=== PATIENT | female | born 1980 | race African-American/Black ===

== ENCOUNTER 2016-11-22 19:04 | Emergency (ER) | payer BC ==
--- NOTE | 2016-11-22 19:22 | ER Document Report ---
ED Medical Screen (RME) - General Chief Complaint: Flu Symptoms Stated Complaint: CHEST PAIN Notes: Flulike symptoms for approximately 20 hours TRAVEL OUTSIDE OF THE [place] IN LAST 30 DAYS: No - Related Data Allergies/Adverse Reactions: No Known Allergies Allergy (Unverified 02/22/16 15:15) Past Medical History - Immunizations Hx Diphtheria, Pertussis, Tetanus Vaccination: Yes
[2016-11-22] MEDS ORDERED: HYDROCODONE/ACETAMINOPHEN 5-325 MG TABLET PO ONE (20:44)
[2016-11-22] MEDS ORDERED: HYDROCODONE/ACETAMINOPHEN 5-325 MG 6 TAB/DSPK PO PRN (20:44)
--- NOTE | 2016-11-22 20:47 | ER Document Report ---
ED Flu Like - General Chief Complaint: Flu Symptoms Stated Complaint: CHEST PAIN Time seen by provider: 20:44 Mode of Arrival: Ambulatory Information source: Patient TRAVEL OUTSIDE OF THE [place] IN LAST 30 DAYS: No - HPI Patient complains to provider of: headache, body aches, flulike symptoms Onset: This morning Timing/Duration: Constant, Persistent Quality of pain: Achy Severity: Moderate Pain Level: 3 Associated symptoms: Body/muscle aches, Chest pain, Chills, Headache Similar symptoms previously: No Recently seen / treated by doctor: No Notes: Patient is a 36-year-old female with no history of medical illness who presents to the emergency room for complaints of flulike symptoms with body aches, headache, chest pain, she denies any fever, does report chills, no sore throat, no ear pain, no vomiting or diarrhea, she denies any specific sick contacts, however 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, she has not taken any medication for her symptoms since they started this morning - Related Data Allergies/Adverse Reactions: No Known Allergies Allergy (Unverified 02/22/16 15:15) Past Medical History - General Information source: Patient - Social History Smoking Status: Unknown if Ever Smoked Frequency of alcohol use: None Drug Abuse: None Family History: Hypertension Patient has suicidal ideation: No Patient has homicidal ideation: No Renal/ Medical History: Denies: Hx Peritoneal Dialysis - Immunizations Hx Diphtheria, Pertussis, Tetanus Vaccination: Yes Review of Systems - Review of Systems Constitutional: Chills EENT: Nose congestion Cardiovascular: No symptoms reported Respiratory: No symptoms reported Gastrointestinal: No symptoms reported Genitourinary: No symptoms reported Female Genitourinary: No symptoms reported Musculoskeletal: See HPI Skin: No symptoms reported Hematologic/Lymphatic: No symptoms reported Neurological/Psychological: Headaches Physical Exam - Vital signs Vitals: Temp Pulse BP Pulse Ox 98.8 F 90 153/90 H 99 11/22/16 19:22 11/22/16 19:22 11/22/16 19:22 11/22/16 19:22 Interpretation: Normal - General General appearance: Appears well, Alert - HEENT Head: Normocephalic, Atraumatic Eyes: Normal Pupils: PERRL - Respiratory Respiratory status: No respiratory distress Chest status: Nontender Breath sounds: Normal Chest palpation: Normal - Cardiovascular Rhythm: Regular Heart sounds: Normal auscultation Murmur: No - Abdominal Inspection: Normal Distension: No distension Bowel sounds: Normal Tenderness: Nontender Organomegaly: No organomegaly - Back Back: Normal, Nontender - Extremities General upper extremity: Normal inspection, Nontender, Normal color, Normal ROM , Normal temperature General lower extremity: Normal inspection, Nontender, Normal color, Normal ROM , Normal temperature, Normal weight bearing. No: Christina's sign - Neurological Neuro grossly intact: Yes Cognition: Normal Orientation: AAOx4 John Paul Coma Scale Eye Opening: Spontaneous Tiro Coma Scale Verbal: Oriented Tiro Coma Scale Motor: Obeys Commands Tiro Coma Scale Total: 15 Speech: Normal Motor strength normal: LUE, RUE, LLE, RLE Sensory: Normal - Psychological Associated symptoms: Normal affect, Normal mood - Skin Skin Temperature: Warm Skin Moisture: Dry Skin Color: Normal Course - Re-evaluation Re-evalutation: 11/22/16 20:45 Patient with signs and symptoms of viral illness, normal EKG findings and negative rapid flu test, she was advised toward supportive care including rest, fluids, Tylenol or Motrin as needed for fever or pain, we discussed the possibility of starting Tamiflu, however patient declined at the present time, patient will be given instructions for follow-up and advised to return if symptoms worsen, patient acknowledges understanding and agreement with this plan - Vital Signs Vital signs: Temp Pulse Resp BP Pulse Ox 98.8 F 90 153/90 H 99 11/22/16 19:22 11/22/16 19:22 11/22/16 19:22 11/22/16 19:22 - EKG Interpretation by Me EKG shows normal: Sinus rhythm Rate: Normal Rhythm: NSR Discharge - Discharge Clinical Impression: Viral infection Condition: Stable Disposition: HOME, SELF-CARE Instructions: Viral Syndrome ([facility]), Oral Narcotic Medication ([facility]) Additional Instructions: Follow up with your primary care provider in one to 2 days. Return to the emergency room immediately if symptoms worsen or any additional concerns. Drink plenty fluids and get plenty or rest. Tylenol or Motrin as needed for pain or fever. Prescriptions: Tramadol HCl/Acetaminophen [Ultracet 37.5 mg/325 mg Tablet] 1 each PO Q6 #20 tablet Forms: Return to Work
[2016-11-22 21:16] VITALS: BP 153/95
--- NOTE | 2016-11-23 08:21 | EKG REPORT ---
SEVERITY:- NORMAL ECG - SINUS RHYTHM : Confirmed by: Tiago Vila MD 23-Nov-2016 08:20:33
== END 2016-11-22 20:59 | disposition home or self-care (01) ==
LOC: ER 19:04
DX: R51 Headache (principal); B34.9 Viral infection, unspecified; M79.1 Myalgia; R68.83 Chills (without fever)
CPT/HCPCS: 87804; 93005; 93010; 99283

== ENCOUNTER 2017-04-08 12:40 | Emergency (ER) | payer OTHER, BC ==
[2017-04-08 12:58] VITALS: BP 164/101
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
== END 2017-04-08 13:54 | disposition home or self-care (01) ==
LOC: ER 12:40
DX: T22.411A Corrosion of unspecified degree of right forearm, initial encounter (principal); T22.412A Corrosion of unspecified degree of left forearm, initial encounter; Y93.G1 Activity, food preparation and clean up; Y92.129 Unspecified place in nursing home as the place of occurrence of the external cause; Y99.0 Civilian activity done for income or pay
CPT/HCPCS: 99283

== ENCOUNTER 2018-05-14 09:10 | Emergency (ER) | payer BC, OTHER ==
[2018-05-14 09:18] VITALS: BP 145/91
[2018-05-14] MEDS ORDERED: KETOROLAC TROMETHAMINE INJ/PF 30 MG/1 ML SDV IV ONE (10:33)
[2018-05-14] MEDS ORDERED: METHOCARBAMOL 500 MG TABLET PO ONE (10:34)
--- NOTE | 2018-05-14 10:35 | ER Document Report ---
ED Medical Screen (RME) - General Chief Complaint: Headache >24 hrs old Stated Complaint: HEADACHE Time Seen by Provider: 05/14/18 10:33 Notes: 38-year-old female who presents with 4 days of right upper neck pain with radiation to her anterior head causing a headache. Seen in urgent care yesterday and given a shot of steroids and pain medicine. Woke up with recurrence of the pain and headache. PE: Tenderness over right upper paracervical muscles. 5/5 strength in all 4 extremities. Sensation intact. I have greeted and performed a rapid initial assessment of this patient. A comprehensive ED assessment and evaluation of the patient, analysis of test results and completion of the medical decision making process will be conducted by additional ED providers. TRAVEL OUTSIDE OF THE [place] IN LAST 30 DAYS: No - Related Data Allergies/Adverse Reactions: No Known Allergies Allergy (Verified 05/14/18 09:11) Past Medical History - Past Medical History Cardiac Medical History: Reports: Hx Hypertension Renal/ Medical History: Denies: Hx Peritoneal Dialysis - Immunizations Hx Diphtheria, Pertussis, Tetanus Vaccination: Yes Physical Exam - Vital signs Vitals: Temp Pulse Resp BP Pulse Ox 97.9 F 83 18 145/91 H 100 05/14/18 09:17 05/14/18 09:17 05/14/18 09:17 05/14/18 09:17 05/14/18 09:17 Course - Vital Signs Vital signs: Temp Pulse Resp BP Pulse Ox 97.9 F 83 18 145/91 H 100 05/14/18 09:17 05/14/18 09:17 05/14/18 09:17 05/14/18 09:17 05/14/18 09:17
--- NOTE | 2018-05-14 10:41 | ER Document Report ---
ED General - General Chief Complaint: Headache >24 hrs old Stated Complaint: HEADACHE Time Seen by Provider: 05/14/18 10:33 Mode of Arrival: Ambulatory Information source: Patient TRAVEL OUTSIDE OF THE [place] IN LAST 30 DAYS: No - HPI Notes: 38-year-old female with a past medical history of headaches was a right upper neck pain which is causing her headache for the last 4 days. Patient was seen in urgent care yesterday and given a shot of steroid and antiemetic. States her pain is 6 out of 10, throbbing sharp and shooting. denies . Has not tried anything [id number] besides ibuprofen. Has not tried any hot or cold compresses. Denies fevers, chills, chest pain,palpitations, shortness of breath, dyspnea, nausea, vomiting, diarrhea, abdominal pain, hematuria,blurred vision, double vision, loss of vision, speech changes, LH, dizziness, syncope, wheezing, ST, URI, weakness, bowel or bladder dysfunction, saddle anesthesia, numbness or tingling in bilateral upper or lower extremities equally, muscle paralysis, weakness in bilateral upper or lower extremities equally or rash. Denies IV drug use. - Related Data Allergies/Adverse Reactions: No Known Allergies Allergy (Verified 05/14/18 09:11) Past Medical History - General Information source: Patient - Social History Smoking Status: Current Every Day Smoker Chew tobacco use (# tins/day): No Frequency of alcohol use: None Drug Abuse: None Family History: Hypertension Patient has suicidal ideation: No Patient has homicidal ideation: No - Past Medical History Cardiac Medical History: Reports: Hx Hypertension Renal/ Medical History: Denies: Hx Peritoneal Dialysis - Immunizations Hx Diphtheria, Pertussis, Tetanus Vaccination: Yes Review of Systems - Review of Systems Constitutional: No symptoms reported EENT: No symptoms reported Cardiovascular: No symptoms reported Respiratory: No symptoms reported Gastrointestinal: No symptoms reported Genitourinary: No symptoms reported Female Genitourinary: No symptoms reported Musculoskeletal: Neck pain Skin: No symptoms reported Hematologic/Lymphatic: No symptoms reported Neurological/Psychological: Headaches Physical Exam - Vital signs Vitals: Temp Pulse Resp BP Pulse Ox 97.9 F 83 18 145/91 H 100 05/14/18 09:17 05/14/18 09:17 05/14/18 09:17 05/14/18 09:17 05/14/18 09:17 - Notes Notes: PHYSICAL EXAMINATION: GENERAL: Well-appearing, well-nourished and in no acute distress. HEAD: Atraumatic, normocephalic. EYES: Pupils equal round and reactive to light, extraocular movements intact, conjunctiva are normal. ENT: Nares patent, oropharynx clear without exudates. Moist mucous membranes. NECK: Normal range of motion, supple without lymphadenopathy LUNGS: Breath sounds clear to auscultation bilaterally and equal. No wheezes rales or rhonchi. HEART: Regular rate and rhythm without murmurs ABDOMEN: Soft, nontender, nondistended abdomen. No guarding, no rebound. No masses appreciated. Female : deferred Musculoskeletal: Normal range of motion, no pitting or edema. No cyanosis. full APROM of cervical spine, no noted cervical spinal tenderness on palpation. negative spurlings test. 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 Dtr +2 bilaterally and equally in BUE. Perrla, full eomi. Face symmetrical. No rashes observed. Point tenderness to right paraspinal muscles near C6. No lymphadenopathy. Full APROM with shoulders. TM intact bilaterally. No meningismus. No noted lymphadenopathy. NEUROLOGICAL: Cranial nerves grossly intact. Normal speech, normal gait. Normal sensory, motor exams PSYCH: Normal mood, normal affect. SKIN: Warm, Dry, normal turgor, no rashes or lesions noted. Course - Re-evaluation Re-evalutation: 05/14/18 15:56 8-year-old female is afebrile, vitals stable and in no distress presents for evaluation of headache that she has had for the last 4 days. Patient has right- sided cervical paraspinal tenderness which is been causing her headache. Patient given Robaxin, Toradol while in triage, this provider also gave patient IV fluids, Benadryl and Compazine. On reevaluation, patient states her headache reduced to 2 out of 10, only a slight throb. Is afebrile, vitals stable and in no distress. States that she feels comfortable going home and will follow up with her doctor. After performing a Medical Screening Examination , I estimate there is LOW risk for ACUTE GLAUCOMA, TEMPORAL ARTERITIS, MENINGITIS, INCRANIAL HEMORRHAGE, or ISCHEMIC STROKE thus I consider the discharge disposition reasonable. I have reevaluated this patient multiple times and no significant life threatening changes are noted. The patient and I have discussed the diagnosis and risks, and we agree with discharging home with close follow-up with the understanding that symptoms and presentations can change. We also discussed returning to the Emergency Department immediately if new or worsening symptoms occur. We have discussed the symptoms which are most concerning (e.g., changing or worsening symptoms, new numbness or weakness, vomiting, fever) that necessitate immediate return. - Vital Signs Vital signs: Temp Pulse Resp BP Pulse Ox 97.9 F 83 18 145/91 H 100 05/14/18 09:17 05/14/18 09:17 05/14/18 09:17 05/14/18 09:17 05/14/18 09:17 Discharge - Discharge Clinical Impression: Headache, Muscle spasm Condition: Stable Disposition: HOME, SELF-CARE Instructions: Intravenous Compazine for Headaches ([facility]), Headache ([facility]), Muscle Relaxers ([facility]), Muscle Strain ([facility]), Tension Headache ([facility]) Additional Instructions: Neck Injury (Cervical Strain) You have a neck strain. This is an injury to the muscles and ligaments in the neck. There is no evidence of a fracture of the neck bones. Also, no injury to the spinal cord or nerve roots was detected. Usually, stiffness and pain INCREASE for the first 24-48 hours after the injury. The pain will gradually resolve and the neck will become more mobile. Most patients are back at work or school within a few days. Typically, complete healing takes about two or three weeks. The usual initial treatment is rest and cold packs. A neck collar may be placed to keep the muscles of the neck at rest. Antiinflammatory and muscle relaxing medication are often used to reduce the spasm and irritation. You should call the doctor, or go to the hospital, if you develop numbness or weakness in any extremity, problems with your bladder or bowel, or pain radiating down the arms. Prescriptions: Cyclobenzaprine HCl [Flexeril 10 mg Tablet] 10 mg PO TIDP PRN #9 tab PRN Reason: Forms: Return to Work Referrals: MIR ANGUIANO MD [ACTIVE STAFF] - Follow up in 3-5 days ANNETTE GORDON MD [EMERITUS] - Follow up in 3-5 days RICARDO SIMS MD [ACTIVE STAFF] - Follow up in 3-5 days
[2018-05-14] MEDS ORDERED: NORMAL SALINE 1000 ML 1,000 ML IV ONE (10:54)
[2018-05-14] MEDS ORDERED: DIPHENHYDRAMINE HCL 50 MG/ML VIAL IV ONE (10:54)
[2018-05-14] MEDS ORDERED: PROCHLORPERAZINE EDISYLATE INJ 10 MG/2 ML VIAL IV ONE (10:55)
== END 2018-05-14 12:32 | disposition home or self-care (01) ==
LOC: ER 09:10
DX: R51 Headache (principal); M62.838 Other muscle spasm; M54.2 Cervicalgia; F17.200 Nicotine dependence, unspecified, uncomplicated
CPT/HCPCS: 99284; 96361; 96374; 96375; J1200; J1885; J0780; J7030

== ENCOUNTER → 2020-05-03 | Outpatient (CLI) | payer BC | LOC: RDC 16:16 | PROVIDERS: ATTEND Nurse Practitioner Family | DX: Z03.818 Encounter for observation for suspected exposure to other biological agents ruled out (principal) | CPT/HCPCS: 87635; C9803 ==

== ENCOUNTER 2020-07-29 14:32 | Emergency (ER) | payer BC ==
[2020-07-29 14:37] VITALS: BP 112/69
--- NOTE | 2020-07-29 14:45 | ER Document Report ---
ED Medical Screen (RME) - General Chief Complaint: Dizziness Stated Complaint: BLOOD PRESSURE ISSUES Time Seen by Provider: 07/29/20 14:38 Mode of Arrival: Ambulatory Information source: Patient Notes: 40-year-old female presented to ED for complaint of dizziness. She thought it was her blood pressure but the blood pressure is good. We will get blood and urine and have her evaluated. Patient is alert oriented respirations regular nonlabored speaking in full sentences. Patient states she is perimenopausal so she did not think she could be I explained to her that it is very po ssible. I have greeted and performed a rapid initial assessment of this patient. A comprehensive ED assessment and evaluation of the patient, analysis of test results and completion of medical decision making process will be conducted by an additional ED providers. TRAVEL OUTSIDE OF THE [place] IN LAST 30 DAYS: No - Related Data Allergies/Adverse Reactions: No Known Allergies Allergy (Verified 07/29/20 14:38) Past Medical History - Past Medical History Cardiac Medical History: Reports: Hx Hypertension Renal/ Medical History: Denies: Hx Peritoneal Dialysis - Immunizations Hx Diphtheria, Pertussis, Tetanus Vaccination: Yes Physical Exam - Vital signs Vitals: Temp Pulse Resp BP Pulse Ox 97.9 F 103 H 18 112/69 99 07/29/20 14:36 07/29/20 14:36 07/29/20 14:36 07/29/20 14:36 07/29/20 14:36 Course - Vital Signs Vital signs: Temp Pulse Resp BP Pulse Ox 97.9 F 103 H 18 112/69 99 07/29/20 14:36 07/29/20 14:36 07/29/20 14:36 07/29/20 14:36 07/29/20 14:36
[2020-07-29 15:16] LABS: ABSOLUTE LYMPHOCYTES (AUTO) 1.3 10^3/uL (0.5-4.7); ABSOLUTE MONOCYTES (AUTO) 0.6 10^3/uL (0.1-1.4); ABSOLUTE NEUT (AUTO) 2.5 10^3/uL (1.7-8.2); BASOPHILS % (AUTO) 0.2 % (0-2); EOSINOPHILS % (AUTO) 0.8 % (0-6); HEMATOCRIT 38.7 % (36.0-47.0); HEMOGLOBIN 13.6 g/dL (12.0-15.5); LYMPHOCYTES % (AUTO) 28.7 % (13-45); MEAN CORPUSCULAR HEMOGLOBIN 35.9 pg (27.0-33.4); MEAN CORPUSCULAR HGB CONC 35.2 g/dL (32.0-36.0); MEAN CORPUSCULAR VOLUME 102 fl (80-97); MONOCYTES % (AUTO) 14.5 % (3-13); PLATELET COUNT 136 10^3/uL (150-450); RED CELL DISTRIBUTION WIDTH 14.3 % (11.5-14.0); SEGMENTED NEUTROPHILS % (AUTO) 55.8 % (42-78); TOTAL CELLS COUNTED % (AUTO) 100 %; WHITE BLOOD COUNT 4.4 10^3/uL (4.0-10.5)
[2020-07-29 15:36] LABS: ALBUMIN 4.3 g/dL (3.5-5.0); ALKALINE PHOSPHATASE 133 U/L (38-126); ANION GAP 7 (5-19); ASPARTATE AMINO TRANSFERASE 33 U/L (14-36); BILIRUBIN,DIRECT 0.3 mg/dL (0.0-0.4); BILIRUBIN,TOTAL 0.8 mg/dL (0.2-1.3); BLOOD UREA NITROGEN 28 mg/dL (7-20); CARBON DIOXIDE 28 mmol/L (22-30); CHLORIDE 100 mmol/L (98-107); GLUCOSE 107 mg/dL (75-110); POTASSIUM 4.2 mmol/L (3.6-5.0); TOTAL PROTEIN 7.9 g/dL (6.3-8.2)
[2020-07-29 17:04] LABS: APPEARANCE,URINE CLOUDY; BILIRUBIN,URINE SMALL (NEGATIVE); COLOR,URINE AMBER; GLUCOSE, URINE NEGATIVE (NEGATIVE); KETONES,URINE TRACE mg/dL (NEGATIVE); LEUKOCYTE ESTERASE,URINE MODERATE (NEGATIVE); NITRITE,URINE NEGATIVE (NEGATIVE); PROTEIN,URINE 100 mg/dL (NEGATIVE); URINE SPECIFIC GRAVITY 1.024
--- NOTE | 2020-07-29 18:02 | ER Document Report ---
Doctor's Note Notes: 07/29/20 18:00 Patient decided to leave AMA. I did give her instructions concerning risks of leaving AMA. She does have renal insufficiency, elevated alkaline phosphatase, cloudy urine with possible UTI but no definite. She states she knows she supposed to get a renal biopsy but has not done it yet. She was supposed to follow-up with Dr. Augustin and has not done it yet. She has been given instructions the risk to include if she does not get her treatments done as prescribed. Patient decided to leave and did sign AMA papers.
== END 2020-07-29 20:00 | disposition left against medical advice (07) ==
LOC: ER 14:32
DX: R42 Dizziness and giddiness (principal); N28.9 Disorder of kidney and ureter, unspecified; I10 Essential (primary) hypertension; Z53.20 Procedure and treatment not carried out because of patient's decision for unspecified reasons
CPT/HCPCS: 36415; 80053; 81001; 84702; 85025; 87086; 99283

== ENCOUNTER 2020-11-13 08:40 | Emergency (ER) | payer BC ==
--- NOTE | 2020-11-13 11:42 | RADIOLOGY REPORT (SQ) ---
EXAM DESCRIPTION: CHEST SINGLE VIEW IMAGES COMPLETED DATE/TIME: 11/13/2020 10:18 am REASON FOR STUDY: chest pain; SOB COMPARISON: 02/22/2016 EXAM PARAMETERS: NUMBER OF VIEWS: One view. TECHNIQUE: Single frontal radiographic view of the chest acquired. RADIATION DOSE: NA LIMITATIONS: None. FINDINGS: LUNGS AND PLEURA: No opacities, masses or pneumothorax. No pleural effusion. MEDIASTINUM AND HILAR STRUCTURES: No masses. Contour normal. HEART AND VASCULAR STRUCTURES: Heart normal in size. Normal vasculature. BONES: No acute findings. HARDWARE: None in the chest. OTHER: No other significant finding. IMPRESSION: NO ACUTE RADIOGRAPHIC FINDING IN THE CHEST. TECHNICAL DOCUMENTATION: JOB ID: [id number] 2010 [employer]- All Rights Reserved Reading location - IP/workstation name: [email or web address]
[2020-11-13 12:21] LABS: ABSOLUTE LYMPHOCYTES (AUTO) 0.7 10^3/uL (0.5-4.7); ABSOLUTE MONOCYTES (AUTO) 0.4 10^3/uL (0.1-1.4); ABSOLUTE NEUT (AUTO) 2.5 10^3/uL (1.7-8.2); BASOPHILS % (AUTO) 0.2 % (0-2); EOSINOPHILS % (AUTO) 0.6 % (0-6); HEMATOCRIT 33.9 % (36.0-47.0); HEMOGLOBIN 11.9 g/dL (12.0-15.5); LYMPHOCYTES % (AUTO) 19.1 % (13-45); MEAN CORPUSCULAR HEMOGLOBIN 35.9 pg (27.0-33.4); MEAN CORPUSCULAR HGB CONC 35.1 g/dL (32.0-36.0); MEAN CORPUSCULAR VOLUME 102 fl (80-97); MONOCYTES % (AUTO) 12.1 % (3-13); RED BLOOD COUNT 3.31 10^6/uL (3.72-5.28); RED CELL DISTRIBUTION WIDTH 15.6 % (11.5-14.0); TOTAL CELLS COUNTED % (AUTO) 100 %; WHITE BLOOD COUNT 3.6 10^3/uL (4.0-10.5)
[2020-11-13 12:30] LABS: ALBUMIN 3.5 g/dL (3.5-5.0); ALKALINE PHOSPHATASE 128 U/L (38-126); ANION GAP 6 (5-19); ASPARTATE AMINO TRANSFERASE 26 U/L (14-36); BILIRUBIN,DIRECT 0.1 mg/dL (0.0-0.4); BILIRUBIN,TOTAL 0.6 mg/dL (0.2-1.3); BLOOD UREA NITROGEN 10 mg/dL (7-20); CALCIUM 8.6 mg/dL (8.4-10.2); CARBON DIOXIDE 26 mmol/L (22-30); CHLORIDE 103 mmol/L (98-107); GLUCOSE 84 mg/dL (75-110); POTASSIUM 3.5 mmol/L (3.6-5.0); TOTAL PROTEIN 6.9 g/dL (6.3-8.2)
--- NOTE | 2020-11-13 12:39 | ER Document Report ---
ED General - General Chief Complaint: Shortness Of Breath Stated Complaint: CHEST TIGHTNESS, DIFFICULTY BREATHING Time Seen by Provider: 11/13/20 12:16 Primary Care Provider: NEFTALI DAVILA MD [Primary Care Provider] - Follow up as needed TRAVEL OUTSIDE OF THE [place] IN LAST 30 DAYS: No - HPI Notes: Patient is a 40-year-old female with a history of lupus who presents with chest pain and shortness of breath that began last night. Patient describes her chest pain as substernal and sharp which has remained constant. She also reports left knee swelling but denies any calf pain or swelling. Patient states she had diarrhea the last 2 days after eating crab legs which is now resolved. Patient states she has a known shellfish allergy and typically gets abdominal pain and diarrhea. She denies abdominal pain, nausea, vomiting, fever, and hemoptysis. 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 She denies hormone use. She is a current everyday smoker and smokes 3-4 "blacks" per day. She states she drinks a couple glasses of wine every night. She denies any recreational drug use. She denies any family cardiac hx. - Related Data Allergies/Adverse Reactions: No Known Allergies Allergy (Verified 07/29/20 14:38) Home Medications: Lisinopril, HCTZ, Hydrochloroqine Past Medical History - General Information source: Patient - Social History Smoking Status: Current Every Day Smoker Cigarette use (# per day): Yes - 4 Frequency of alcohol use: Heavy Drug Abuse: None Family History: Hypertension - Past Medical History Cardiac Medical History: Reports: Hx Hypertension Pulmonary Medical History: Reports: Hx Asthma Renal/ Medical History: Denies: Hx Peritoneal Dialysis - Immunizations Hx Diphtheria, Pertussis, Tetanus Vaccination: Yes Review of Systems - Review of Systems Constitutional: No symptoms reported EENT: No symptoms reported Cardiovascular: See HPI Respiratory: See HPI Gastrointestinal: No symptoms reported Genitourinary: No symptoms reported Female Genitourinary: No symptoms reported Musculoskeletal: See HPI Skin: No symptoms reported Hematologic/Lymphatic: No symptoms reported Neurological/Psychological: No symptoms reported Physical Exam - Vital signs Vitals: Pulse Resp BP Pulse Ox 93 16 141/90 H 100 11/13/20 08:43 11/13/20 08:43 11/13/20 08:43 11/13/20 08:43 - Notes Notes: PHYSICAL EXAMINATION: VITALS: Vitals reviewed and within normal limits. GENERAL: Well-appearing, well-nourished and in no acute distress. HEAD: Atraumatic, normocephalic. EYES: Pupils equal, round, and reactive to light, extraocular movements intact, sclera anicteric, conjunctiva are normal. ENT: Nares patent. Moist mucous membranes. Oropharynx clear without exudates. NECK: Normal range of motion, supple without lymphadenopathy. LUNGS: Breath sounds clear to auscultation bilaterally and equal. No wheezes, rales, or rhonchi. HEART: Regular, rate, and rhythm without murmurs. ABDOMEN: Soft, nontender, normoactive bowel sounds. No guarding, no rebound. No masses appreciated. EXTREMITIES: Left knee swelling with no calf swelling bilaterally. Left knee nontender. Normal range of motion, no pitting or edema. No cyanosis. NEUROLOGICAL: No focal neurological deficits. Moves all extremities spontaneously and on command. PSYCH: Normal mood, normal affect. SKIN: Warm, Dry, normal turgor, no rashes or lesions noted. Course - Re-evaluation Re-evalutation: Presentation of chest pain in an otherwise well appearing patient. Low clinical suspicion for ACS given clinical history, exam, EKG without ST elevations or depressions, and negative initial troponin. HEART score less than or equal to 3. PE also seems unlikely given clinical history, absence of tachycardia or dyspnea. Patient is PERC criteria negative. CXR without evidence of pneumothorax or pneumonia. No widened mediastinum. Aortic dissection also seems unlikely given history, symmetric pulses, CXR, and vitals. HEART Score: 1 Chest pain in a patient without evidence of cardiac or other serious etiology on workup today. I discussed with patient that, based on their age, risk factors and emergency department testing today, the likelihood that their symptoms are related to a heart attack is very low (estimated risk of heart attack or over the next 30 days of less than 1%). The patient demonstrates decision making capacity and has verbalized an understanding of these risks to me. Based on this, the patient has chosen to follow-up as an outpatient. Usual chest pain return precautions reviewed. The patient states understanding and agreement with this plan. - Vital Signs Vital signs: Temp Pulse Resp BP Pulse Ox 97.6 F 93 18 129/95 H 98 11/13/20 18:32 01/06/21 08:43 11/13/20 18:01 11/13/20 18:01 11/13/20 18:01 - Laboratory Results Result Diagrams: 11/13/20 12:00 11/13/20 12:00 Laboratory Results Interpreted: 11/13/20 11/13/20 11/13/20 12:00 12:00 16:40 WBC 3.6 L RBC 3.31 L Hgb 11.9 L Hct 33.9 L MCV 102 H MCH 35.9 H RDW 15.6 H Plt Count 98 L Sodium 134.7 L Potassium 3.5 L Alkaline Phosphatase 128 H Urine Protein 30 H Urine Ketones 20 H Ur Leukocyte Esterase SMALL H Critical Laboratory Results Reviewed: No Critical Results - Radiology Results Critical Radiology Results Reviewed: No Critical Results - EKG Interpretation by Me Additional EKG results interpreted by me: Sinus rhythm with a rate of 83. QTc 452. Normal axis. Flattened T waves in inferior leads. No ST segment changes in consecutive leads. Discharge - Discharge Clinical Impression: Shortness of breath Chest pain Qualifiers: Chest pain type: unspecified Qualified Code(s): R07.9 - Chest pain, unspecified Condition: Stable Disposition: HOME, SELF-CARE Additional Instructions: You were seen today for chest pain. The exact cause of your pain is unclear. However, based on your cardiac enzyme testing, chest x-ray, and EKG it does not appear that it is from an immediately life-threatening cause at this time. Although your testing here is normal is critical that you follow-up with your primary care physician for continued evaluation of this chest pain and possible stress testing. I recommended you see your physician within the next 24-48 hours to be evaluated for consideration of a stress test. Please return to emergency department immediately if you have worsening of your chest pain, shortness of breath, vomiting, become unable to exert yourself due to pain or difficulty breathing, you pass out, or have any pain that radiates into your arms, jaw, or back. Please also return if you have any additional symptoms that are concerning to you. Prescriptions: Ibuprofen [Motrin 800 mg Tablet] 800 mg PO Q8H PRN #30 tab PRN Reason: Forms: Return to Work Referrals: NEFTALI DAVILA MD [Primary Care Provider] - Follow up as needed
[2020-11-13 12:52] LABS: PLATELET COUNT 98 10^3/uL (150-450)
--- NOTE | 2020-11-13 15:11 | RADIOLOGY REPORT (SQ) ---
EXAM DESCRIPTION: VENOUS UNILATERAL LOWER IMAGES COMPLETED DATE/TIME: 11/13/2020 2:53 pm REASON FOR STUDY: left lower leg swelling COMPARISON: None. TECHNIQUE: Dynamic and static greer scale and color images acquired of the left leg venous system. Se lected spectral images acquired with additional compression and augmentation maneuvers. The contralat eral common femoral vein and saphenofemoral junction were also imaged. Images stored on PACS. LIMITATIONS: None. FINDINGS: COMMON FEMORAL: Normal phasicity, compression and augmentation. No visualized echogenic ma terial on greer scale. No defects on color images. FEMORAL: Normal compression and augmentation. No visualized echogenic material on greer scale. No defe cts on color images. POPLITEAL: Normal compression, augmentation. No visualized echogenic material on greer scale. No defec ts on color images. CALF VESSELS: Normal compression, augmentation. No visualized echogenic material on greer scale. No de fects on color images. GSV and SSV: Normal compression, augmentation. No visualized echogenic material on greer scale. No def ects on color images. ANY DEEP VENOUS INSUFFICIENCY: Not evaluated. ANY EVIDENCE OF POPLITEAL CYST: No. OTHER: No other significant finding. CONTRALATERAL COMMON FEMORAL VEIN AND SAPHENOFEMORAL JUNCTION: Normal phasicity, compression and augmentation. No visualized echogenic material on greer scale. No de fects on color images. IMPRESSION: NO EVIDENCE OF DVT OR SVT IN THE LEFT LEG. TECHNICAL DOCUMENTATION: JOB ID: [id number] 2010 [employer]- All Rights Reserved Reading location - IP/workstation name: [email or web address]
[2020-11-13 16:56] LABS: APPEARANCE,URINE CLEAR; BILIRUBIN,URINE NEGATIVE (NEGATIVE); COLOR,URINE YELLOW; GLUCOSE, URINE NEGATIVE (NEGATIVE); KETONES,URINE 20 mg/dL (NEGATIVE); LEUKOCYTE ESTERASE,URINE SMALL (NEGATIVE); NITRITE,URINE NEGATIVE (NEGATIVE); PROTEIN,URINE 30 mg/dL (NEGATIVE); URINE SPECIFIC GRAVITY 1.013; UROBILINOGEN,URINE NEGATIVE mg/dL (<2.0)
[2020-11-13] MEDS ORDERED: IBUPROFEN 800 MG TABLET PO ONE (17:43)
[2020-11-13 18:29] VITALS: BP 129/95
--- NOTE | 2020-11-13 23:40 | EKG REPORT ---
SEVERITY:- NORMAL ECG - SINUS RHYTHM : Confirmed by: Maximus Mariano 13-Nov-2020 23:39:11
== END 2020-11-13 18:40 | disposition home or self-care (01) ==
LOC: ER 08:40
DX: R06.02 Shortness of breath (principal); R07.9 Chest pain, unspecified; R06.00 Dyspnea, unspecified; F17.210 Nicotine dependence, cigarettes, uncomplicated; I10 Essential (primary) hypertension; Z91.013 Allergy to seafood
CPT/HCPCS: 36415; 71045; 80053; 81001; 84484; 85025; 87086; 93005; 93010; 93971; 99285

== ENCOUNTER → 2020-11-25 | Outpatient (CLI) | payer BC ==
[~2020-11-25] MED LIST: COVID-19 VACCINE (PFIZER)/PF 30 MCG/0.3 ML VIAL IM ONE; EPINEPHRINE INJ/PF 1 MG/1 ML AMPULE IM PRN
== END ==
LOC: EMPHEALTH 10:30
PROVIDERS: ATTEND Internal Medicine
DX: Z23 Encounter for immunization (principal)
CPT/HCPCS: 91300